=== PATIENT | female | born 2005 | race Caucasian/White ===

== ENCOUNTER 2024-09-09 08:35 | Emergency (ER) | payer SELFPAY ==
[~2024-09-09] VITALS: Ht 172.7 cm; Wt 55.0 kg
[2024-09-09] MEDS ORDERED: SODIUM CHLORIDE 0.9% 1,000 ML IV ONE (08:45)
[2024-09-09] MEDS ORDERED: KETOROLAC TROMETHAMINE 15 MG/ML VIAL IV ONE (08:45)
[2024-09-09] MEDS ORDERED: ondansetron HCL 4 MG/2 ML VIAL IV ONE (08:45)
[2024-09-09 09:26] LABS: BASOPHILS 0.5 % (0.1-1.2); EOSINOPHILS 1.1 % (0.7-5.8); HEMATOCRIT 40.1 % (34.1-44.9); HEMOGLOBIN 13.5 g/dL (11.2-15.7); LYMPHOCYTES 38.8 % (19.3-51.7); MCH 27.6 PG (25.6-32.2); MCHC 33.7 g/dL (32.2-35.5); MCV 81.8 fL (79.4-94.8); MONOCYTES 9.9 % (4.7-12.5); NEUTROPHILS 49.5 % (34.0-71.1); PLATELET COUNT 271 K/uL (182-369)
[2024-09-09 09:42] LABS: ALBUMIN 3.9 g/dL (3.4-5.0); ALBUMIN/GLOBULIN RATIO 1.08 (1.1-2.4); ANION GAP 11.1 (7-21); BILIRUBIN, TOTAL 0.3 mg/dL (0.2-1.0); BUN/CREATININE RATIO 8.98 (6.0-28.6); CALCIUM 9.4 mg/dL (8.5-10.1); CREATININE, SERUM 0.89 mg/dL (0.55-1.02); POTASSIUM 4.1 mmol/L (3.5-5.1); PROTEIN, TOTAL 7.5 g/dL (6.4-8.2)
[2024-09-09] MEDS ORDERED: GLYCERIN1 EACH PR (10:27)
[2024-09-09] MEDS ORDERED: FLEET ENEMA133 ML PR (10:27)
[2024-09-09] MEDS ORDERED: GLYCERIN 2 GM SUPP PR ONE (10:30)
[2024-09-09] MEDS ORDERED: Methylnaltrexone Bromide 12 MG/0.6 ML VIAL SUB-Q ONE (10:30)
--- OUTSIDE RECORDS SUMMARY | 2024-09-09 10:41 | XMS ---
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 [facility] has no Care Guidelines for this patient. [place] VISIT COUNT (12 MO.) 3 [facility] [address] [address] [facility] 1 [facility] TOTAL 7 NOTE: Visits indicate total known visits. ED/[facility] VISIT TRACKING (12 MO.) 09/09/2024 08:36 [facility] TYPE: Emergency COMPLAINT: - ABDOMINAL PAIN 08/26/2024 16:04 [facility] Joao MULLIGAN TYPE: Emergency DIAGNOSES: - Constipation 06/27/2024 02:29 [facility] EDWINA VelasquezEm TYPE: Emergency COMPLAINT: - bowel obstruction DIAGNOSES: - Abdominal Pain - bowel obstruction - Constipation 06/18/2024 21:10 [facility] Joao MULLIGAN TYPE: Emergency DIAGNOSES: - Pelvic and perineal pain - Pelvic Pain - Vaginal Pain 06/03/2024 23:03 [facility] ID TYPE: Emergency COMPLAINT: - abdominal pain, nausea DIAGNOSES: - Nausea with vomiting, unspecified - Abdominal Pain - abdominal pain, nausea - Nausea - Vomiting 12/07/2023 21:33 [facility] L[facility] ID TYPE: Emergency COMPLAINT: - abd pain DIAGNOSES: - Cellulitis of left upper limb - Unspecified intestinal obstruction, unspecified as to partial versus complete obstruction - abd pain - Vomiting 12/06/2023 02:00 Rika BlanchardMicaelajose Joao Shepherd ID TYPE: Emergency DIAGNOSES: - would check, flank pain, "chest burning" INPATIENT VISIT TRACKING (12 MO.) 12/07/2023 23:09 [facility] MULLIGAN TYPE: General Medicine COMPLAINT: - abd pain DIAGNOSES: - Cellulitis of left upper limb - Unspecified intestinal obstruction, unspecified as to partial versus complete obstruction [email or web address]
[2024-09-09 10:50] VITALS: BP 114/69
== END 2024-09-09 10:50 | disposition home or self-care (01) ==
LOC: ED 08:35
PROVIDERS: Emergency Medicine
DX: F11.20 Opioid dependence, uncomplicated (principal); K59.00 Constipation, unspecified
CPT/HCPCS: 36415; 74019; 80053; 83690; 84703; 85025; 96374; 96375; 99284-25; J1885; J2405; J7030